=== PATIENT | female | born 1950 | race Caucasian/White ===

== ENCOUNTER 2016-12-18 11:13 | Emergency (ER) | payer OTHER ==
--- NOTE | ~2016-12-18 | US85 ---
[facility] A Service of [facility] RADIOLOGY TEXT RESULTS PATIENT: LORIE ERVIN LOCATION: SED : 54 UNIT #: [id number] AGE: [address]: Becky Bernstein SEX: F ORDER DR: [id number] [address] [address] [id number] E MR#: [id number] Acc #: [id number] NAME: LORIE ERVIN : 1950 SEX: F STUDY DATE/TIME: 12/18/2016 11:17 UNIT: SED ROOM: STUDY DESCRIPTION: [facility] [employer] Attending Physician: Becky Bernstein Pa-C Referring Physician: Becky Bernstein Pa-C Ordering Physician: Gómez Roth M.D. Primary Care Physician: Pritesh Macias M.D. MEDICAL IMAGING REPORT This report is preliminary unless electronic signature is present. EXAM Left lower extremity DVT study dated 12/18/2016. HISTORY Left calf pain for 2 weeks, worsening 1 day after a long walk. Trauma 2 weeks ago. TECHNIQUE Structural millan-scale analysis, color-Doppler flow analysis, and waveform analysis with compression of the deep veins were performed as per the protocol. FINDINGS The examination is negative. There is no evidence of left lower extremity deep venous thrombus from the groin to the lower calf. Visualized greater saphenous vein is also patent. IMPRESSION Negative examination. No evidence of left lower extremity deep venous thrombosis. Dictated by... Ana Cooley M.D. THIS IS AN ELECTRONICALLY VERIFIED REPORT Ana Cooley M.D. at 12/19/2016 2:14 PM CPR/tmw TD: 12/18/2016 13:31 JOB #: [id number] [facility] A Service of [facility] RADIOLOGY TEXT RESULTS PATIENT: LORIE ERVIN LOCATION: SED : 54 UNIT #: [id number] AGE: [address]: Becky Bernstein SEX: F ORDER DR: MEDICAL IMAGING REPORT Page 1 of 1
[~2016-12-18 11:13] MED LIST: ACETAMINOPHEN PO; ADVAIR 100-501 EACH IH; ADVAIR 2501 DISK W/D PO; ALBUTEROL INHALER INH; ALBUTEROL MININEB NEB; ALBUTEROL17 GM INH; ALPRAZOLAM PO; ALPRAZOLAM0.5 MG PO; AUGMENTIN PO; AVELOX400 M1 PO; AZITHROMYCIN500 MG PO; B COMPLEX1 CA1 PO; BACTRIM DS TABL1 TA1 PO; CERTAGEN PO; COMPAZINE10 MG PO; DICYCLOMINE HCL20 MG PO; FLEXERIL10 M1 PO; FOSAMAX70 MG; FOSAMAX70 MG PO; LEVAQUIN PO; LORTAB 7.5-5001 TAB PO; MEDROL4 MG/DOSE- PO; MOTION SICKNESS25 M4 PO; NAPROSYN500 MG PO; PREDNISONE PO; PREDNISONE5 MG PO; PREMARIN; PREMARIN PO; PREMARIN0.625 MG PO; PREVACID PO; PROMETHAZI6.25 MG/5 PO; PROVENTIL17 GM INH; SEROQUEL50 M1 PO; SPIRIVA18 MCG INH; STIOLTO RESPIMAT4 GM; STIOLTO RESPIMAT4 GM INH; TRAMADOL HCL50 M1 PO; VICODIN 5/1 TAB 5/50 PO; VITAMIN C500 MG PO; VITAMIN D PO; WELCHOL625 MG PO; XANAX1 MG PO; [UNRECOGNIZED DRUG - OTHER]; [UNRECOGNIZED DRUG - OTHER] PO
== END 2016-12-18 13:22 | disposition home or self-care (01) ==
LOC: SED 11:13
DX: S80.12XA Contusion of left lower leg, initial encounter (principal); Z88.2 Allergy status to sulfonamides; Z88.1 Allergy status to other antibiotic agents; Z88.8 Allergy status to other drugs, medicaments and biological substances; Z91.040 Latex allergy status; Z88.6 Allergy status to analgesic agent; W22.8XXA Striking against or struck by other objects, initial encounter
CPT/HCPCS: 93971; 99283; 99284

== ENCOUNTER 2017-01-29 17:41 | Emergency (ER) | payer OTHER | END 2017-01-29 19:14 | disposition home or self-care (01) | LOC: SED 17:41 | DX: T26.11XA Burn of cornea and conjunctival sac, right eye, initial encounter (principal); S05.01XA Injury of conjunctiva and corneal abrasion without foreign body, right eye, initial encounter; T79.9XXA Unspecified early complication of trauma, initial encounter; J44.9 Chronic obstructive pulmonary disease, unspecified; F17.200 Nicotine dependence, unspecified, uncomplicated; Z88.2 Allergy status to sulfonamides; Z88.8 Allergy status to other drugs, medicaments and biological substances; Z88.0 Allergy status to penicillin; Z88.1 Allergy status to other antibiotic agents; Z79.899 Other long term (current) drug therapy; X58.XXXA Exposure to other specified factors, initial encounter; Y92.9 Unspecified place or not applicable | CPT/HCPCS: 99283 ==

== ENCOUNTER → 2017-05-05 | Outpatient (CLI) | payer OTHER ==
--- NOTE | ~2017-05-05 | US37 ---
[facility] A Service of [facility] RADIOLOGY TEXT RESULTS PATIENT: LORIE ERVIN LOCATION: CEEG : 54 UNIT #: [id number] AGE: [address]: Pritesh Macias MD SEX: F ORDER DR: [id number] [facility] [address] [place], [place] [address] [id number] O MR#: [id number] Acc #: [id number] NAME: LORIE ERVIN : 1950 SEX: F STUDY DATE/TIME: 05/05/2017 9:36 UNIT: CEEG ROOM: STUDY DESCRIPTION: US Carotid W/Doppler Bilateral Attending Physician: Pritesh Macias M.D. Referring Physician: Pritesh Macias M.D. Ordering Physician: Pritesh Macias M.D. Primary Care Physician: Pritesh Macias M.D. MEDICAL IMAGING REPORT This report is preliminary unless electronic signature is present EXAM Bilateral carotid Doppler ultrasound. Date: 05/05/2017 HISTORY Headaches and passed out, symptoms present for 1 month. COMPARISON None. FINDINGS Real time millan-scale, color Doppler and SPECT Doppler imaging was performed of bilateral cervical carotid arteries and vertebral arteries. Estimated stenosis is based on standard NASCET methodology. There is only minimal soft plaquing detected within the distal right common carotid artery. Mild soft plaquing is demonstrated within the right carotid bulb and proximal right internal carotid artery. Peak systolic velocity in the right internal carotid artery proximal segment 79.7 cm/sec, mid segment 80.2 cm/sec, and distal segment 69.9 cm per second, indicating less than 50% luminal stenosis by NASCET methodology. Right external carotid artery is patent with normal spectral Doppler waveform. Right vertebral artery is patent with normal antegrade flow. Very mild soft plaquing is demonstrate within the [id number] left common carotid artery. Mild soft plaquing is demonstrated within the left carotid bulb and proximal left internal carotid artery. Peak systolic velocity in the left internal carotid artery, proximal 76.8 cm/sec, mid segment 73.5 cm/sec, distal segment 67.4 cm/sec, indicating less than 50% luminal stenosis by NASCET methodology. Left external carotid artery is patent with normal spectral Doppler waveform. Left vertebral artery is STS. [facility] A Service of [facility] RADIOLOGY TEXT RESULTS PATIENT: LORIE ERVIN [place] [facility] [place] [birth year] UNIT #: [id number] AGE: [address]: Pritesh Macias MD SEX: F ORDER DR: patent with normal antegrade flow. IMPRESSION 1. Mild atherosclerotic plaquing within the distal bilateral common carotid arteries, carotid bulbs and proximal internal carotid arteries. 2. Less than 50% luminal stenosis in the bilateral internal carotid arteries based on NASCET methodology. 3. Patency and antegrade flow in bilateral vertebral arteries. Dictated by... Pam Seay M.D. THIS IS AN ELECTRONICALLY VERIFIED REPORT Pam Seay M.D. at 05/10/2017 3:26 PM DAMIÁN/mina TD: 05/06/2017 01:28 JOB #: [id number] MEDICAL IMAGING REPORT Page 1 of 1 COPY
--- NOTE | ~2017-05-05 | CO ---
Unit #: [id number] #: [id number] Patient: LORIE ERVIN [id number] [address] [place], [place] [address] [id number] O MR#: [id number] NAME: LORIE ERVIN ROOM: Age: 66 Sex: F Admission Date: 05/05/2017 : 1950 Attending Physician: Pritesh Macias M.D. Primary Care Physician: Pritesh Macias M.D. Consultation Date: 05/05/2017 CONSULTATION REPORT REASON FOR THE STUDY Syncope. EEG DESCRIPTION This is an outpatient, digitally recorded multi montage adult EEG with leads placed according to the International 10/20 system. Hyperventilation and photic stimulation were attempted. With the patient fully aroused, there was 8 to 9 hertz posterior background. The patient did become drowsy and later on stage 2 sleep was seen. The dominant feature of this EEG is phase reversing, which looks like spike and wave and sometimes continuous for several seconds, though electrographic seizures or clinical events were not otherwise diagnosed. Hyperventilation was attempted and there were more discharges at the end of hyperventilation. Photic stimulation was attempted in an intermittent stepwise pattern up to the flash frequency of 30 hertz, but I did not see any driving, asymmetry or paroxysmal activity. No clinical events were seen. IMPRESSION This is an abnormal adult, awake, and asleep EEG with abnormalities, presence of irritable foci and epileptiform discharges on the left side. Please clinically correlate with the patient history and definitely with imaging studies and because of this potential diagnosis of syncope treatment may be considered based on clinical presentation and clinical correlation is recommended. Dictated by... Kaya Perera/deng TD: 05/09/2017 18:11 JOB #: [id number] CC: Pritesh Macias M.D. Unit #: [id number] #: [id number] Patient: LORIE ERVIN CONSULTATION REPORT Page 1 of 1 X Jeramie Howard MD CONSULTATION REPORT
== END | disposition home or self-care (01) ==
LOC: CEEG 10:33 → CNIV 12:30
DX: R55 Syncope and collapse (principal); I65.23 Occlusion and stenosis of bilateral carotid arteries
CPT/HCPCS: 93880; 95816